=== PATIENT | male | born 1960 | race Caucasian/White ===

== ENCOUNTER → 2018-10-28 | Day surgery (SDC) | payer BC ==
[2018-10-26 13:36] LABS: INR 0.87; PROTHROMBIN TIME 12.7 seconds (11.9-14.5)
[2018-10-26 13:37] LABS: PARTIAL THROMBOPLASTIN TIME 29.3 seconds (23.8-35.5)
[~2018-10-28] MED LIST: BUPIVACAINE 0.25% 30ML SDV INJ ONE; CEFAZOLIN SOD 1 GM/D5W 50ML 50 ML IV ONE; CRESTOR10 MG PO; DEXAMETHASONE SOD PHOS INJ 4 MG/ML VIAL ONE; FENTANYL CITRATE/PF 100MCG/2 ML INJ ONE; GABAPENTIN300 MG PO; KETOROLAC TROMETHAMINE 30 MG/ML VIAL ONE; LIDOCAINE HCL 2% LOCAL INJ 5 ML SDV VIAL INJ ONE; LISINOPRIL10 MG PO; MELOXICAM7.5 MG PO; MIDAZOLAM HCL 2 MG/2 ML VIAL ONE; NOVOLOG100 UNITS1 SC; OMEPRAZOLE40 MG PO; ONDANSETRON HCL INJ 2 MG/ML VIAL ONE; PRISTIQ ER50 MG PO; PROPOFOL IV EMULSION 10 MG/ML 20 ML VIAL ONE; PROPRANOLOL HCL80 MG PO; SEVOFLURANE INHAL SOLN 250 ML PEN BTL ONE; TOUJEO SC; ULORIC80 MG PO
[2018-10-28 11:10] VITALS: BP 103/71
--- NOTE | 2018-10-28 13:11 | Operative Report ---
DATE OF PROCEDURE: October 28, 2018 PREOPERATIVE DIAGNOSIS: Left carpal tunnel syndrome. POSTOPERATIVE DIAGNOSIS: Left carpal tunnel syndrome. PROCEDURE: Left carpal tunnel release. ANESTHESIA: General. INDICATIONS: The patient is a 58-year-old man who presents with a left carpal tunnel syndrome. He was taken to the operating room for a left carpal tunnel release. PROCEDURE: After the induction of general anesthesia, the patient was placed on the operating table in supine position with the arm abducted over a hand table. The left hand, wrist and forearm were prepped and draped circumferentially in sterile fashion. A small midline incision was created over the palm of the hand just distal to the distal flexor crease of the wrist. The subcutaneous fat was divided. The transverse carpal ligament was identified and incised with a number 15C blade until the underlying median nerve came into view. As the daycare assistant retracted the skin edges, the transverse carpal ligament was divided proximally and distally and the full length of the median nerve within the carpal tunnel was exposed and decompressed. The point of maximum compression of the nerve appeared to be about 2.5 cm distal to the distal flexor crease of the wrist where the ligament was at its thickest. More distally, the recurrent motor branch of the nerve was preserved within its fat pad. The wound was copiously irrigated with Bacitracin solution. Meticulous hemostasis was secured. The subcutaneous layer was closed with a 3-0 Vicryl suture. The skin was closed with a 3-0 nylon suture in a horizontal mattress fashion. The skin was infiltrated with lidocaine, and a dressing was applied and the hand was wrapped after the tourniquet had been deflated. The patient was awakened, extubated and taken to the postanesthesia care unit in stable condition. No intraoperative complications were encountered. Estimated blood loss was minimal. Job#: [id number] EDVIN
== END | disposition home or self-care (01) ==
LOC: OR 06:58
PROVIDERS: ATTEND Neurological Surgery
DX: G56.02 Carpal tunnel syndrome, left upper limb (principal); I10 Essential (primary) hypertension; E78.5 Hyperlipidemia, unspecified; E11.9 Type 2 diabetes mellitus without complications; K21.9 Gastro-esophageal reflux disease without esophagitis; N20.0 Calculus of kidney; J45.909 Unspecified asthma, uncomplicated; F32.9 Major depressive disorder, single episode, unspecified; F41.9 Anxiety disorder, unspecified; Z01.810 Encounter for preprocedural cardiovascular examination; Z01.812 Encounter for preprocedural laboratory examination; Z79.4 Long term (current) use of insulin; Z68.30 Body mass index [BMI] 30.0-30.9, adult; Z98.1 Arthrodesis status
CPT/HCPCS: 36415 ×2; 64721; 82948; 85610; 85730; 93005; J0690; J1100; J1885; J2001; J2250; J2405; J2704

== ENCOUNTER → 2019-01-11 | Day surgery (SDC) | payer BC ==
[2019-01-05 14:17] LABS: ANION GAP 10.9 mmol/L (8-16); CALCIUM 9.9 mg/dL (8.4-10.2); CREATININE, SERUM 1.8 mg/dL (0.72-1.25); POTASSIUM 4.9 mmol/L (3.5-5.1)
[~2019-01-11] MED LIST changes: -BUPIVACAINE 0.25% 30ML SDV INJ ONE; -CEFAZOLIN SOD 1 GM/D5W 50ML 50 ML IV ONE; +CEFAZOLIN SOD 1 GM/NS 50ML 50 ML IV ONE; -DEXAMETHASONE SOD PHOS INJ 4 MG/ML VIAL ONE; +INSULIN REGULAR, HUMAN 100 UNIT/1 ML 3ML VIAL ONE; -ONDANSETRON HCL INJ 2 MG/ML VIAL ONE; +ONDANSETRON HCL INJ 2MG/ML 2ML 2 MG/ML VIAL ONE; +TRUJEO; +TRULICITY; +TRULICITY SQ; +ULTRAM50 MG PO
[2019-01-11 08:10] VITALS: BP 135/88
--- NOTE | 2019-01-11 16:08 | Operative Report ---
DATE OF PROCEDURE: 01/11/2019 SURGEON: Amrik Herrera MD PREOPERATIVE DIAGNOSIS: Stenosing tenosynovitis of right thumb. POSTOPERATIVE DIAGNOSIS: Stenosing tenosynovitis of right thumb. OPERATION PERFORMED: Tenovaginotomy of right thumb. ANESTHESIA: General anesthesia. HISTORY: The patient is a 58-year-old right hand-dominant male, who presents with stenosing tenosynovitis of the right thumb that is recalcitrant to conservative treatment. The risks, benefits, and alternatives of treatment were discussed with the patient and they are prepared to undergo the procedure as outlined. DESCRIPTION OF PROCEDURE: The patient was brought to the operating theater. After the induction of adequate general anesthesia, the patient was prepped and draped in a supine position. A time out was performed by the entire operating room team. An oblique incision was marked out over the A1 nneka of the right thumb. The upper extremity was exsanguinated, and a tourniquet was inflated to a pressure of 250 mmHg. The incision was made through the skin and subcutaneous tissues. All venous tributaries were controlled with bipolar cautery. The incision was deepened through the palmar tissues. The neurovascular bundles on the radial and ulnar sides of the flexor tendon sheath were identified and retracted away from the flexor tendon sheath and preserved. The A1 nneka of the affected finger was identified and incised longitudinally, taking care to protect and preserve the flexor tendons within the sheath. After the complete length of the nneka had been transected, the tendons were placed in a range of motion. There was noted to be good motion without any locking. The wound was then copiously irrigated with bacteriostatic saline and closed with 5-0 nylon in an interrupted horizontal mattress fashion. A Marcaine field block was performed at the operative site. The tourniquet was deflated. All the fingers pinked up nicely. A sterile bulky conforming bandage was applied to the hand, and the patient was returned to the recovery room in satisfactory condition and was discharged with a postoperative instruction sheet as well as a followup appointment. Amrik Herrera MD ER/MODL /[id number]
== END | disposition home or self-care (01) ==
LOC: OR 05:22
PROVIDERS: ATTEND Plastic Surgery
DX: M65.311 Trigger thumb, right thumb (principal); E11.22 Type 2 diabetes mellitus with diabetic chronic kidney disease; I12.9 Hypertensive chronic kidney disease with stage 1 through stage 4 chronic kidney disease, or unspecified chronic kidney disease; N18.9 Chronic kidney disease, unspecified; Z01.812 Encounter for preprocedural laboratory examination; Z79.4 Long term (current) use of insulin
CPT/HCPCS: 26055; 36415 ×2; 80048; 82948; J0690; J1885; J2001; J2250; J2405; J2704

== ENCOUNTER → 2019-05-19 | Day surgery (SDC) | payer BC ==
[~2019-05-19] MED LIST changes: +BALANCED SALT SOLN (OPTH) 15 ML BTL IO ONE; +DEXAMETHASONE SOD PHOS INJ 4 MG/ML VIAL ONE; -INSULIN REGULAR, HUMAN 100 UNIT/1 ML 3ML VIAL ONE; +LIDOCAINE 2%/ EPINEPHRINE 20ML MDV ONE; +MUPIROCIN 2% OINT 22 GM TUBE ONE; +OZEMPIC SQ; +PHENYLEPHRINE HCL 1% 10 MG/ML VIAL ONE
--- NOTE | 2019-05-19 07:10 | NUR ---
SPIRITUAL CARE - Pre-Surgery Assessment: Pt in bed. Pt's at bedside. Pt reported supportive attention from family and friends. Intervention: I provided pastoral presence, hospitality, and sympathetic listening. I acquainted pt with availability of radio dispatcher while hospitalized. Outcome: Pt expressed appreciation for visit. No need for follow up indicated at this time. [facility] Spiritual Care Department O: [phone] Pager: [phone] ([phone] number calling from)
[2019-05-19 10:10] VITALS: BP 119/82
--- NOTE | 2019-05-19 20:51 | Operative Report ---
DATE OF PROCEDURE: 05/19/2019 SURGEON: Amrik Herrera MD PREOPERATIVE DIAGNOSIS: Basal-cell carcinoma, left nostril. POSTOPERATIVE DIAGNOSIS: Basal-cell carcinoma, left nostril. PROCEDURE: Excision of nasolabial flap and flap closure of left nostril. ANESTHESIA: General. HISTORY: The patient is a 59-year-old male, who underwent excision of a basal-cell carcinoma on the left nostril. He had an attempted reconstruction utilizing nasolabial flap in a two-stage fashion. There was marked deformity of the alar rim and the nostril. There is redundancy of the flap and there is obstruction to inspiration. The risks, benefits, and alternatives of surgery were discussed with the patient. He is prepared to undergo the procedure as outlined. DESCRIPTION OF PROCEDURE: The patient was marked preoperatively in the holding area. He was brought to the operating theater and after the induction of adequate general anesthesia, he was prepped and draped in a supine position and a time-out was performed. The procedure was begun by marking out the proposed area of that needs to be excised that encompasses the alar rim as well as a portion of the nasolabial flap. The entire left nostril was then infiltrated with 1% Xylocaine with epinephrine. After waiting appropriate amount of time for maximum vasoconstrictive effect, the edge of the nostril and the edge of the nasal labial flap are excised as one component. This recreates the original defect from the patient's prior Mohs surgery. The wound edges were made hemostatic using the electrocautery. At this point, the cartilage of the alar rim is identified in the nostril and using careful dissection medially, the alar rim coming from the columella is identified as well. At this point, the cartilages were placed together and sutured with 6-0 Prolene suture in an interrupted fashion. At this point, the soft tissue of the flap was then advanced to the nostril and the alar rim is lined up and then a single olivas stitch of 6-0 Prolene in interrupted horizontal mattress fashion is performed. Once there is satisfactory alignment of the alar rim, the remaining sutures were placed on the surface of the nostril using 6-0 Prolene in an interrupted horizontal mattress fashion. The nostril was then carefully everted and 5-0 chromic sutures were used to repair the mucosal lining. At the completion of the procedure, the alar rim is noted to be in good continuity and there is no airway obstruction. Bactroban ointment was placed on the inside of the nostril on the sutures. Externally, Steri-Strips were applied. The patient tolerated the procedure well. Estimated blood loss of procedure was approximately 5 mL. He was returned to recovery room in satisfactory condition and discharged with a postoperative instruction sheet as well as a followup appointment. MD FRANCOISE Cheung/MODL /[id number]
== END | disposition home or self-care (01) ==
LOC: OR 06:05
PROVIDERS: ATTEND Plastic Surgery
DX: Z08 Encounter for follow-up examination after completed treatment for malignant neoplasm (principal); I10 Essential (primary) hypertension; E78.5 Hyperlipidemia, unspecified; E11.9 Type 2 diabetes mellitus without complications; K21.9 Gastro-esophageal reflux disease without esophagitis; K58.9 Irritable bowel syndrome, unspecified; M54.9 Dorsalgia, unspecified; F41.9 Anxiety disorder, unspecified; F32.9 Major depressive disorder, single episode, unspecified; Z01.810 Encounter for preprocedural cardiovascular examination; Z79.4 Long term (current) use of insulin
CPT/HCPCS: 14060; 36415; 82948; 93005; J0690; J1100; J1885; J2001 ×2; J2250; J2370; J2405; J2704; J3010

== ENCOUNTER → 2019-06-09 | Day surgery (SDC) | payer BC ==
[2019-06-06 14:11] LABS: BASOPHILS # (AUTO) 0.1 (0.0-0.1); BASOPHILS % 0.7 % (0.0-1.0); EOSINOPHILS # (AUTO) 0.3 (0.0-0.4); EOSINOPHILS % 3.6 % (0.0-6.0); HEMATOCRIT 47.2 % (38.2-49.6); HEMOGLOBIN 15.4 g/dL (14.0-18.0); LYMPHOCYTES # (AUTO) 2.4 (1.0-3.2); LYMPHOCYTES % 33.7 % (18.0-39.1); MEAN CORPUSCULAR HEMOGLOBIN 29.4 pg (28-32); MEAN CORPUSCULAR HGB CONC 32.6 g/dL (31-35); MEAN CORPUSCULAR VOLUME 90.1 fL (81-99); MONOCYTES # (AUTO) 0.6 (0.2-0.8); MONOCYTES % 8.8 % (4.4-11.3); NEUTROPHILS # (AUTO) 3.8 (2.1-6.9); NEUTROPHILS % 53.1 % (38.7-80.0); PLATELET COUNT 128 x10e3/uL (140-360); RED BLOOD COUNT 5.24 x10e6/uL (4.3-5.7); RED CELL DISTRIBUTION WIDTH 12.8 % (11.7-14.4)
[2019-06-06 14:31] LABS: INR 0.88; PROTHROMBIN TIME 12.4 seconds (11.9-14.5)
[2019-06-06 14:32] LABS: PARTIAL THROMBOPLASTIN TIME 30.3 seconds (23.8-35.5)
[2019-06-06 14:41] LABS: ALBUMIN 4.1 g/dL (3.5-5.0); ALBUMIN/GLOBULIN RATIO 1.1 (0.8-2.0); ANION GAP 16.3 mmol/L (8-16); CALCIUM 9.8 mg/dL (8.4-10.2); CREATININE, SERUM 1.88 mg/dL (0.72-1.25); POTASSIUM 4.3 mmol/L (3.5-5.1)
[~2019-06-09] MED LIST changes: -BALANCED SALT SOLN (OPTH) 15 ML BTL IO ONE; +BUPIVACAINE HCL 0.5% INJ 30 ML VIAL INJ ONE; +INSULIN REGULAR, HUMAN 100 UNIT/1 ML 3ML VIAL ONE; -LIDOCAINE 2%/ EPINEPHRINE 20ML MDV ONE
--- OUTSIDE RECORDS SUMMARY | 2019-06-09 08:48 | XMS REPORT ---
Author Author [facility] Address Unknown Phone Unavailable Care Team Providers Care Investor Relations Analyst Name Role Phone Unavailable Unavailable Problems This patient has no known problems. Allergies, Adverse Reactions, Alerts This patient has no known allergies or adverse reactions. Medications This patient has no known medications. Encounters Start Date/Time End Date/Time Encounter Type Admission Type Attending Clinicians Care Facility Care Department Encounter ID 2019-06-03 06:31:00 2019-06-03 06:31:00 Outpatient [id number] 2019-05-24 13:16:00 2019-05-24 13:16:00 Outpatient [facility] MED [id number]
[2019-06-09 09:52] VITALS: BP 114/83
--- NOTE | 2019-06-10 08:50 | Operative Report ---
DATE OF PROCEDURE: 06/09/2019 SURGEON: Amrik Herrera MD PREOPERATIVE DIAGNOSIS: Stenosing tenosynovitis of left thumb. POSTOPERATIVE DIAGNOSIS: Stenosing tenosynovitis of left thumb. OPERATION PERFORMED: Tenovaginotomy of left thumb. ANESTHESIA: General. HISTORY: The patient is a 59-year-old left hand-dominant male, who presents with stenosing tenosynovitis of the left thumb that is recalcitrant to conservative treatment. The risks, benefits, and alternatives of treatment were discussed with the patient and they are prepared to undergo the procedure as outlined. DESCRIPTION OF PROCEDURE: The patient was brought to the operating theater. After the induction of adequate general/regional anesthesia, the patient was prepped and draped in a supine position. A time out was performed by the entire operating room team. An oblique incision was marked out over the A1 nneka of the left thumb. The upper extremity was exsanguinated, and a tourniquet was inflated to a pressure of 250 mmHg. The incision was made through the skin and subcutaneous tissues. All venous tributaries were controlled with bipolar cautery. The incision was deepened through the palmar tissues. The neurovascular bundles on the radial and ulnar sides of the flexor tendon sheath were identified and retracted away from the flexor tendon sheath and preserved. The A1 nneka of the affected finger was identified and incised longitudinally, taking care to protect and preserve the flexor tendons within the sheath. After the complete length of the nneka had been transected, the tendons were placed in a range of motion. There was noted to be good motion without any locking. The wound was then copiously irrigated with bacteriostatic saline and closed with 5-0 nylon in an interrupted horizontal mattress fashion. A Marcaine field block was performed at the operative site. The tourniquet was deflated. All the fingers pinked up nicely. A sterile bulky conforming bandage was applied to the hand, and the patient was returned to the recovery room in satisfactory condition and was discharged with a postoperative instruction sheet as well as a followup appointment. Amrik Herrera MD ER/MODL /[id number]
== END | disposition home or self-care (01) ==
LOC: OR 08:46
PROVIDERS: ATTEND Plastic Surgery
DX: M65.312 Trigger thumb, left thumb (principal); K21.9 Gastro-esophageal reflux disease without esophagitis; K74.60 Unspecified cirrhosis of liver; E11.22 Type 2 diabetes mellitus with diabetic chronic kidney disease; I12.9 Hypertensive chronic kidney disease with stage 1 through stage 4 chronic kidney disease, or unspecified chronic kidney disease; N18.9 Chronic kidney disease, unspecified; R06.02 Shortness of breath; Z01.812 Encounter for preprocedural laboratory examination; Z79.4 Long term (current) use of insulin
CPT/HCPCS: 26055; 36415 ×2; 80053; 82948; 85025; 85610; 85730; J0690; J1100; J1885; J2001; J2250; J2370; J2405; J2704; J3010; J1817